=== PATIENT | male | born 1990 | race Hispanic/Latino ===

== ENCOUNTER 2017-03-31 10:45 | Emergency (ER) | payer BC, MEDICARE ==
[2017-03-31 11:04] VITALS: BP 136/69; PULSE 86; RESP 18; TEMP 99.9; O2SAT 97
[2017-03-31] MEDS ORDERED: Amoxicillin-Clav 875-125 mg Tab PO STA (11:27)
[2017-03-31] MEDS ORDERED: Amoxicillin-Clav 875-125 mg Tab PO ONE (11:38)
--- NOTE | 2017-03-31 11:46 | ED PDOC ---
HPI: CCC, URI, Sore Throat Time Seen by Provider: 03/31/17 11:27 Chief Complaint (Nursing): ENT Problem Chief Complaint (Provider): sore throat History Per: Patient Additional Complaint(s): 26-year-old male presents to emergency department with sore throat for 3 days and subjective fever 3 days ago. Patient has been taking ibuprofen which has helped the pain. He is tolerating liquids and solids but has pain when swallowing. No coughing or vomiting. Past Medical History Reviewed: Historical Data, Nursing Documentation, Vital Signs Vital Signs: Last Vital Signs Temp 99.9 F H 03/31/17 11:01 Pulse 86 03/31/17 11:01 Resp 18 03/31/17 11:01 BP 136/69 03/31/17 11:01 Pulse Ox 97 03/31/17 11:52 - Medical History PMH: No Chronic Diseases - Surgical History Surgical History: Appendectomy - Family History Family History: States: No Known Family Hx - Living Arrangements Living Arrangements: With Family - Social History Current smoker - smoking cessation education provided: No Alcohol: None Drugs: Denies - Home Medications Home Medications: Ambulatory Orders Medication Instructions Recorded Ibuprofen [Motrin] 600 mg PO Q8 PRN #20 tab 06/15/14 Sulfamethoxazole/Trimethopri 1 tab PO BID #14 tab 06/15/14 [Bactrim Ds 800 mg-160 mg] Naproxen [Naprosyn] 500 mg PO BID #20 tab 09/01/15 Sulfamethoxazole/Trimethoprim 1 tab PO BID #14 tab 11/13/15 [Bactrim DS 800 mg-160 mg] Triamcinolone 0.1% [Triamcinolone 1 mg TP ASDIR #1 tube 11/13/15 0.1% Cream] Fluticasone Propionate [Flonase] 2 spr NS DAILY #1 bottle 01/14/16 Promethazine DM [Phenergan DM 5 ml PO BID PRN #100 ml 01/14/16 Syrup] Cephalexin [Keflex] 500 mg PO TID #21 capsule 04/04/16 Amoxicillin/Clavulanate [Augmentin 1 tab PO BID #14 tab 03/31/17 875 MG-125 MG] Ibuprofen [Motrin] 600 mg PO Q6 PRN #15 tab 03/31/17 predniSONE [Prednisone] 20 mg PO BID #10 tab 03/31/17 - Allergies Allergies/Adverse Reactions: Allergies Allergy/AdvReac Type Severity Reaction Status Date / Time No Known Allergies Allergy Verified 03/31/17 11:03 Review of Systems ROS Statement: Except As Marked, All Systems Reviewed And Found Negative Constitutional: Positive for: Fever (subjective) ENT: Positive for: Throat Pain, Throat Swelling Respiratory: Negative for: Cough Gastrointestinal: Negative for: Vomiting Physical Exam - Reviewed Nursing Documentation Reviewed: Yes Vital Signs Reviewed: Yes - Physical Exam Appears: Positive for: Well, Non-toxic, No Acute Distress Skin: Negative for: Rash Eye Exam: Positive for: Normal appearance, EOMI, PERRL ENT: Positive for: TM Is/Are (normal bilterally), Pharyngeal Erythema, Tonsillar Swelling Cardiovascular/Chest: Positive for: Regular Rate, Rhythm Respiratory: Positive for: Normal Breath Sounds Lymphatic: Positive for: Adenopathy (Bilateral anterior cervical lymphadenopathy ) Neurologic/Psych: Positive for: Alert, Oriented - ECG O2 Sat by Pulse Oximetry: 97 Pulse Ox Interpretation: Normal Medical Decision Making Medical Decision Making: Impression: Pharyngitis and tonsillitis Plan: PO motrin dose Throat culture Rx augmentin and motrin Patient was advised to take meds as directed and to drink plenty of fluids. He was advised to follow up with primary care doctor or clinic in 2-3 days. Disposition - Clinical Impression Clinical Impression: Pharyngitis, Tonsillitis - Patient ED Disposition Is Patient to be Admitted: No Counseled Patient/Family Regarding: Studies Performed, Diagnosis, Need For Followup, Rx Given - Disposition Referrals: [facility] [Outside] Disposition: Routine/Home Disposition Time: 11:44 Condition: STABLE Additional Instructions: Take rx meds as directed. Rest and drink plenty of fluids. Follow up in 2-3 days with clinic. Prescriptions: Amoxicillin/Clavulanate [Augmentin 875 MG-125 MG] 1 tab PO BID #14 tab Ibuprofen [Motrin] 600 mg PO Q6 PRN #15 tab PRN Reason: Pain, Moderate (4-7) predniSONE [Prednisone] 20 mg PO BID #10 tab Instructions: Pharyngitis (ED), Tonsillitis (ED)
== END 2017-03-31 11:55 | disposition home or self-care (01) ==
LOC: H.ER 10:45
DX: J03.90 Acute tonsillitis, unspecified (principal)

== ENCOUNTER 2018-07-26 16:46 | Emergency (ER) | payer OTHER, MEDICARE ==
[2018-07-26 17:10] VITALS: BP 127/71; PULSE 54; RESP 18; TEMP 98.3; O2SAT 99
--- NOTE | 2018-07-26 17:29 | ED PDOC ---
HPI: Wound Care - HPI Time Seen by Provider: 07/26/18 17:12 Chief Complaint (Nursing): Suture/Staple Removal Chief Complaint (Provider): Suture removal History Per: Patient Exam Limitations: no limitations Onset/Duration Of Symptoms: Days (x10) Additional Complaint(s): 28 y/o male with no significant past medical history presents to ED for suture removal. To left middle finger [address] x10 days ago. No other medical complaints. Past Medical History Reviewed: Historical Data, Nursing Documentation, Vital Signs Vital Signs: Last Vital Signs Temp 98.3 F 07/26/18 17:08 Pulse 54 L 07/26/18 17:08 Resp 18 07/26/18 17:08 BP 127/71 07/26/18 17:08 Pulse Ox 99 07/26/18 17:08 - Medical History PMH: No Chronic Diseases - Surgical History Surgical History: Appendectomy - Family History Family History: States: Unknown Family Hx - Immunization History Hx Tetanus Toxoid Vaccination: No - Home Medications Home Medications: Ambulatory Orders Medication Instructions Recorded Ibuprofen [Motrin] 600 mg PO Q8 PRN #20 tab 06/15/14 Sulfamethoxazole/Trimethopri 1 tab PO BID #14 tab 06/15/14 [Bactrim Ds 800 mg-160 mg] Naproxen [Naprosyn] 500 mg PO BID #20 tab 09/01/15 Sulfamethoxazole/Trimethoprim 1 tab PO BID #14 tab 11/13/15 [Bactrim DS 800 mg-160 mg] Triamcinolone 0.1% [Triamcinolone 1 mg TP ASDIR #1 tube 11/13/15 0.1% Cream] Fluticasone Propionate [Flonase] 2 spr NS DAILY #1 bottle 01/14/16 Promethazine DM [Phenergan DM 5 ml PO BID PRN #100 ml 01/14/16 Syrup] Cephalexin [Keflex] 500 mg PO TID #21 capsule 04/04/16 Amoxicillin/Clavulanate [Augmentin 1 tab PO BID #14 tab 03/31/17 875 MG-125 MG] Ibuprofen [Motrin] 600 mg PO Q6 PRN #15 tab 03/31/17 predniSONE [Prednisone] 20 mg PO BID #10 tab 03/31/17 Bacitracin Ointment [Bacitracin] 1 applic TOP BID #1 tube 07/16/18 - Allergies Allergies/Adverse Reactions: Allergies Allergy/AdvReac Type Severity Reaction Status Date / Time No Known Allergies Allergy Verified 07/26/18 17:08 Review of Systems ROS Statement: Except As Marked, All Systems Reviewed And Found Negative Skin: Positive for: Other (sutures to left 3rd digit) Physical Exam - Reviewed Nursing Documentation Reviewed: Yes Vital Signs Reviewed: Yes - Physical Exam Appears: Positive for: Well, Non-toxic, No Acute Distress Head Exam: Positive for: ATRAUMATIC, NORMOCEPHALIC Skin: Positive for: Normal Color, Warm, DRY Eye Exam: Positive for: EOMI, Normal appearance, PERRL Extremity: Positive for: Normal ROM, Other ([address] to left 3rd digit; no erythema, no drainage). Negative for: Pedal Edema, Deformity - ECG O2 Sat by Pulse Oximetry: 99 (RA) Pulse Ox Interpretation: Normal - Progress ED Course And Treament: [address] to left middle finger placed x10 days ago. no erythema or drainage. Sutures removed with suture removal kit. Patient tolerated procedure well. Medical Decision Making Medical Decision Making: Time: 17:25 Initial Impression: suture removal Initial Plan: [address] to left middle finger placed x10 days ago. no erythema or drainage. Sutures removed with suture removal kit. Patient tolerated procedure well. Scribe Attestation: Documented by Ganga Nava, acting as a scribe for Charissa Louis PA-C. Provider Scribe Attestation: All medical record entries made by the Scribe were at my direction and personally dictated by me. I have reviewed the chart and agree that the record accurately reflects my personal performance of the history, physical exam, medical decision making, and the department course for this patient. I have also personally directed, reviewed, and agree with the discharge instructions and disposition. Disposition - Clinical Impression Clinical Impression: Removal of suture - Patient ED Disposition Is Patient to be Admitted: No Counseled Patient/Family Regarding: Diagnosis, Need For Followup, Rx Given - Disposition Disposition: Routine/Home Disposition Time: 17:29 Condition: GOOD Instructions: Stitches Removal Forms: [facility] [employer] ([place]er)
== END 2018-07-26 17:38 | disposition home or self-care (01) ==
LOC: H.ER 16:46
DX: Z48.02 Encounter for removal of sutures (principal)